=== PATIENT | female | born 1990 | race Hispanic/Latino ===

== ENCOUNTER 2018-07-22 00:27 | Emergency (ER) | payer BC, SELFPAY ==
[2018-07-22] MEDS ORDERED: Dicyclomine 20 MG TAB ONE (00:45)
[2018-07-22] MEDS ORDERED: Ondansetron PF 4 MG/2 ML Vial ONE (00:45)
[2018-07-22] MEDS ORDERED: Ondansetron ODT 4 MG TAB ONE (00:46)
== END 2018-07-22 00:50 | disposition home or self-care (01) ==
LOC: BURERS 00:27
DX: K80.50 Calculus of bile duct without cholangitis or cholecystitis without obstruction (principal)
CPT/HCPCS: 99283; J2405; Q0162

== ENCOUNTER 2019-05-18 14:34 | Emergency (ER) | payer SELFPAY ==
[~2019-05-18 14:34] MED LIST: Iopamidol 370 76% 100 ML VIAL ONE
[2019-05-18 15:18] LABS: #Basophils 0.1 thou/uL (0.0-0.2); #Eosinphils 0.2 thou/uL (0.0-0.7); #Lymphocytes 2.5 thou/uL (1.20-3.40); #Monocytes 0.4 thou/uL (0.11-0.59); #Neutrophils 5.3 thou/uL (1.40-6.50); %Basophils 0.9 % (0.0-1.0); %Eosinophils 2.8 % (0.0-10.0); %Lymphocytes 29.4 % (21.0-51.0); %Monocytes 4.9 % (0.0-10.0); Hemoglobin 13.6 g/dL (12.0-16.0); Mean Corpuscular HGB CONC 32.8 g/dL (32.0-36.0); Mean Corpuscular Hemoglobin 29.3 pg (27.0-31.0); Mean Corpuscular Volume 89.4 fL (78.0-98.0); Mean Platelet Volume 6.9 fL (7.4-10.4); Platelet Count 271 thou/uL (130-400); RBC Distribution Width 11.7 % (11.5-14.5); Red Blood Cell (RBC) Count 4.66 mill/uL (4.20-5.40); White Blood Cell (WBC) Count 8.5 thou/uL (4.8-10.8)
[2019-05-18 15:18] LABS: Bilirubin Negative (Negative); Blood, Urine Small (Negative); Clarity Clear (Clear); Glucose, Urine (Dipstick) Negative (Negative); Leukocyte Negative (Negative); Nitrite Negative (Negative); Protein, Urine (Dipstick) Negative (Neg-Trace); Urobilinogen 0.2 mg/dL (Less than 2)
[2019-05-18 15:19] LABS: Pregnancy Test - Urine (BHCG) Negative (Negative)
[2019-05-18 15:20] LABS: Pregu Control Background? CLEAR/WHITE (CLR/WHITE); Pregu Control Bar Appear? YES (CONTROL BAR)
[2019-05-18 15:22] LABS: Bacteria/HPF Rare-Few HPF (None Seen); RBC/HPF 0-3 HPF (0-3); Squamous Epithelial 0-3 HPF (0-3); WBC/HPF 0-3 HPF (0-3)
[2019-05-18 15:26] LABS: ALT (SGPT) 24 U/L (8-55); AST (SGOT) 21 U/L (5-34); Albumin 4.7 g/dL (3.5-5.0); Alkaline Phosphatase 121 U/L (40-110); Anion Gap 13 mmol/L (10-20); BUN (Urea Nitrogen) 7 mg/dL (7.0-18.7); Bilirubin, Total 0.4 mg/dL (0.2-1.2); Calc. Creatinine Clearance 0 mL/min (70-130); Calcium 9.7 mg/dL (7.8-10.44); Carbon Dioxide 24 mmol/L (22-29); Chloride 109 mmol/L (98-107); Estimated GFR-MDRD Greater than 90; Globulin 3.2 g/dL (2.4-3.5); Glucose 102 mg/dL (70-105); Lipase 22 U/L (8-78); Potassium 3.6 mmol/L (3.5-5.1); Protein, Total 7.9 g/dL (6.0-8.3); Sodium 142 mmol/L (136-145)
--- NOTE | 2019-05-18 17:28 | CT ---
CT ABDOMEN PELVIS WITH CONTRAST: Date: 05-18-[address] of the abdomen and pelvis was performed for evaluation of upper abdominal pain. FINDINGS: The gallbladder is extremely large measuring at least 12 cm in length. The wall does not seem unduly thick, nor is there inflammatory streaking around it. There are no dilated intrahepatic ducts. I unde rstand there is a history of gallstones, though they are not easily seen on this exam. The lung bases are clear. The liver, spleen, pancreas, adrenal glands and kidneys showed no acute pauline nges. The aorta was normal in caliber. Bowel is nondistended with no inflammatory change around it. There is no sign of appendicitis. No warner e air or free fluid was seen. CT of the pelvis shows no pelvic masses, fluid collections, or inflammatory changes. IMPRESSION: Extremely large gallbladder (12+ cm) suggesting some degree of obstruction. Findings discussed with Dr. Garcia at 1605 on 05-18-19. POS: HOME
== END 2019-05-18 17:40 | disposition short-term general hospital (02) ==
LOC: BURERS 14:34
DX: K80.50 Calculus of bile duct without cholangitis or cholecystitis without obstruction (principal); Z79.899 Other long term (current) drug therapy
CPT/HCPCS: 74177; 80053; 81003; 81015; 81025; 83605; 83690; 85025; Q9967

== ENCOUNTER 2019-05-19 23:03 | Emergency (ER) | payer BC, SELFPAY | END 2019-05-19 23:45 | disposition home or self-care (01) | LOC: BURERS 23:03 | DX: K91.840 Postprocedural hemorrhage of a digestive system organ or structure following a digestive system procedure (principal) | CPT/HCPCS: 99283 ==

== ENCOUNTER 2019-05-23 19:44 | Emergency (ER) | payer BC, SELFPAY ==
[2019-05-23] MEDS ORDERED: Oseltamivir 75 MG CAP ONE (21:01)
== END 2019-05-23 21:10 | disposition home or self-care (01) ==
LOC: BURERS 19:44
DX: J11.1 Influenza due to unidentified influenza virus with other respiratory manifestations (principal)
CPT/HCPCS: 87804; 99283

== ENCOUNTER 2019-09-09 11:45 | Emergency (ER) | payer BC, SELFPAY | END 2019-09-09 12:13 | disposition home or self-care (01) | LOC: BURERS 11:45 | DX: J11.1 Influenza due to unidentified influenza virus with other respiratory manifestations (principal) | CPT/HCPCS: 99282 ==

== ENCOUNTER 2021-04-05 21:04 | Emergency (ER) | payer BC, SELFPAY ==
[2021-04-06 15:55] LABS: SARS-CoV-2 PCR by NAA DETECTED (NotDetected)
== END 2021-04-05 21:33 | disposition home or self-care (01) ==
LOC: BURERS 21:04
DX: U07.1 COVID-19 (principal); J06.9 Acute upper respiratory infection, unspecified
CPT/HCPCS: 99284; U0003; U0005